=== PATIENT | male | born 1970 | race Caucasian/White ===

== ENCOUNTER 2023-05-15 08:31 | Day surgery (SDC) | payer BC ==
[2023-05-15 09:26] LABS: Hematocrit 47.1 % (38.8-50.0); Hemoglobin 16.2 g/dL (13.5-17.5); Mean Corpuscular HGB CONC 34.4 g/dL (32.0-36.0); Mean Corpuscular Volume 90.1 fl (81.2-95.1); Platelet Count 205 10x3/uL (150-450); RBC Distribution Width 13.1 % (11.5-14.5); Red Blood Cell (RBC) Count 5.23 10x6/uL (4.32-5.72); White Blood Cell (WBC) Count 4.4 10x3/uL (3.5-10.5)
[2023-05-15 09:29] LABS: PTT 25.7 sec (22.0-33.0); Prothrombin Time 10.7 sec (9.5-12.1)
[2023-05-15 09:37] VITALS: BP 160/97; TEMP 97.2
== END 2023-05-15 12:07 | disposition home or self-care (01) ==
LOC: CSHULT 08:31
PROVIDERS: ATTEND Internal Medicine Gastroenterology
PROC: 0FB00ZX Excision of Liver, Open Approach, Diagnostic (ICD-10-PCS; principal; 2023-05-15)
DX: K74.60 Unspecified cirrhosis of liver (principal); I10 Essential (primary) hypertension; E78.00 Pure hypercholesterolemia, unspecified; Z87.442 Personal history of urinary calculi; Z79.899 Other long term (current) drug therapy; Z79.82 Long term (current) use of aspirin
CPT/HCPCS: 47000; 76942; 85027; 85610; 85730; 88307; 88313